=== PATIENT | female | born 1995 | race Caucasian/White ===

== ENCOUNTER 2021-01-27 01:02 | Observation (INO) | payer OTHER ==
[2021-01-27] MEDS ORDERED: Zithromax 500 MG/ 250 ML NaCl Premix 500 MG/250 ML IVPB IV STA (20:00)
--- NOTE | 2021-01-27 20:05 | PCM.HP ---
History of Present Illness - Chief Complaint Chief Complaint: History of Present Illness: is a 25 year old female at 39 4/7wks EGA arrived this evening for elective cervidial induction, on questioning she has shortness of breath, cough and runny nose, has had some subjective fever for several days, more short of breath today. good movement, no other complaints or concerns. - Review of Systems Constitutional: Fever, Chills Ears, Nose, & Throat: No Symptoms Respiratory: Cough, Short Of Breath Cardiac: No Chest Pain, No Edema, No Syncope Abdominal/Gastrointestinal: Nausea, No Abdominal Pain, No Vomiting, No Diarrhea Genitourinary Symptoms: No Dysuria Skin: No Rash All Other Systems: Reviewed and Negative Medications & Allergies Allergies/Adverse Reactions: Allergies Allergy/AdvReac Type Severity Reaction Status Date / Time No Known Drug Allergies Allergy Unverified 01/27/21 19:08 - Female History Are you now?: Yes Expected Date of Delivery: 01/30/21 - Social History Smoking Status: Never smoker - Physical Exam Vital Signs: Vital Signs - 24 hr Temp Pulse Resp BP Pulse Ox 01/27/21 18:06 98.2 F 122 H 36 H 136/76 93 L General Appearance: mild distress Neurologic Exam: alert, oriented x 3 Respiratory Exam: accessory muscle use, crackles/rales Cardiovascular Exam: tachycardia Gastrointestinal/Abdomen Exam: soft (gravid, nontender) Extremity Exam: normal inspection, normal range of motion, pelvis stable Skin Exam: normal color, warm, dry, No rash Results - Labs Lab/Micro Results: Lab Results-Last 24 Hours 01/27/21 Range/Units 17:56 SARS-CoV-2 (PCR) POSITIVE A (NEGATIVE) - Radiology Impressions Radiology Exams & Impressions: Radiology Procedures Category Date Time Status CHEST 1 VIEW (PORTABLE) Stat Exams 01/27/21 19:58 Ordered Assessment/Plan (1) COVID-19 affecting in third trimester Current Visit: Yes Status: Acute Assessment & Plan: spoke with Dr Cy CAMPOVERDE at [facility], she will arrange for transfer if available bed for delivery due to risk of demise and current clinical status with high risk covid in . Code(s): O98.513 - OTHER VIRAL DISEASES COMPLICATING , THIRD TRIMESTER; U07.1 - COVID-19
[2021-01-27] MEDS ORDERED: ROCEPHIN 1 Gm-D5w 50 ml Bag** 1 G/50 ML IVPB IV ONE (20:13)
[2021-01-27] MEDS ORDERED: Zithromax 500 MG/ 250 ML NaCl Premix 500 MG/250 ML IVPB IV ONE (20:13)
[2021-01-27] MEDS ORDERED: Zofran 4 MG/2 ML VIAL IV PRN (21:00)
[2021-01-27 21:43] LABS: Hemoglobin 14.3 gm/dl (12.0-16.0); Mean Cell Volume 88.1 fl (78-100); Platelet Count 284 K/mm3 (150-450); Red Blood Count 4.77 M/mm3 (4.1-5.4); Red Cell Distribution Width 13.8 % (11.5-14.0)
[2021-01-27 21:53] LABS: ALBUMIN 3.7 g/dL (3.5-5.0); ALKALINE PHOSPHATASE 199 U/L (38-126); ANION GAP 20.3 MEQ/L (5-15); BLOOD UREA NITROGEN 6 mg/dL (7-17); CHLORIDE 106 mmol/L (98-107); Calcium 9.1 mg/dL (8.4-10.2); Creatinine 1 0.46 mg/dL (0.52-1.04); EST GLOMERULAR FILTRATION RATE > 60.0 ML/MIN; Glucose 82 mg/dL (74-106); Potassium 3.6 mmol/L (3.5-5.1); SGOT/AST 40 U/L (14-36); SGPT/ALT 39 U/L (0-35); SODIUM 136 mmol/L (137-145); Total Protein 7.3 g/dL (6.3-8.2)
[2021-01-27 21:56] LABS: Carbon Dioxide 13 mmol/L (22-30)
[2021-01-27] MEDS ORDERED: Zofran 4 MG/2 ML VIAL ONE (22:03)
[2021-01-27 23:35] VITALS: BP 134/71
[2021-01-27 23:44] VITALS: PULSE 113; O2SAT 98
[2021-01-27 23:47] LABS: Appearance SLIGHTLY CLOUDY (CLEAR); Bacteria FEW /HPF (NEGATIVE); Bilirubin SMALL (NEGATIVE); Blood NEGATIVE Ery/ul (0-5); Epithelial Cells RARE /HPF (FEW); Glucose NEGATIVE (NEGATIVE); Ketones MODERATE (NEGATIVE); Leukocyte Esterase TRACE (NEGATIVE); Mucus SLIGHT /HPF (NEGATIVE); Nitrite NEGATIVE (NEGATIVE); Protein,Urine Dip >=500 (Negative); Specific Gravity 1.027 (1.005-1.025); Urobilinogen 2 mg/dL (0-1)
[2021-01-28 01:06] LABS: Eosinophil 1 % (0.00-3.0); Lymphocytes 16 % (24-44); Monocyte 6 % (0.0-12.0); Neutrophils 77 % (36.0-66.0); Platelet Estimate NORMAL (NORMAL); Total Cells Counted 100
--- NOTE | 2021-01-28 08:34 | XRAY ---
Indication: Tachypnea. Positive Covid 19. . Comparison: None Portable chest underinflated with diffuse hazy left lung airspace disease without consolidation/large effusion. Remaining heart, right lung, and bony thorax unremarkable. Comment: Preliminary interpretation made by [facility]. No critical discrepancy.
[2021-01-28] MEDS ORDERED: ROCEPHIN 1 Gm-D5w 50 ml Bag** 1 G/50 ML IVPB IV ONE (19:59)
== END 2021-01-27 23:00 ==
LOC: OB 16:51 → MED SURG 20:13 → UNDODISOB 23:00
PROVIDERS: ADMIT Family Medicine; ATTEND Family Medicine
DX: O98.513 Other viral diseases complicating pregnancy, third trimester (principal); U07.1 COVID-19; Z3A.39 39 weeks gestation of pregnancy; R50.9 Fever, unspecified; R06.02 Shortness of breath
CPT/HCPCS: 36415; 71045; 80053; 81001; 85025; 85379; 87086; G0378; U0003; J0456; J0696; J2405